=== PATIENT | female | born 1940 | race Caucasian/White ===

== ENCOUNTER 2018-04-04 06:09 | Observation (INO) | payer OTHER ==
[~2018-04-04] VITALS: Ht 157.5 cm; Wt 73.9 kg
[~2018-04-04 06:09] MED LIST: ALPR0.5T3 PO; BRIL90TA PO; ECASA81 PO; LISI10TA3 PO; PREV30CA36 PO; RANI150T PO; ZOCO40TA PO
[2018-04-04] MEDS ORDERED: CHLORHEXIDINE GLUCONATE 2 % 1 PACK (2 CLOTHS) TOPICAL PRN (06:30)
[2018-04-04] MEDS ORDERED: POVIDONE IODINE 5% (ANTISEPSIS KIT) 4 APPLICATIONS EACH NARE PRN (06:30)
[2018-04-04] MEDS ORDERED: LACTATED RINGER'S 1000 ML IV PRN (06:30)
[2018-04-04] MEDS ORDERED: METOPROLOL TARTRATE 25 MG TAB PO PRN (06:30)
[2018-04-04] MEDS ORDERED: SODIUM CHLORID 0.9% 500 ML IV PRN (06:30)
[2018-04-04] MEDS ORDERED: ACETAMINOPHEN 1000 MG/100 ML 100 ML IV ONE (07:10)
[2018-04-04] MEDS ORDERED: ARTIFICIAL TEARS OPTH OINT 3.5 APPLIC/3.5 GM TUBO ONE (07:10)
[2018-04-04 07:13] LABS: AUTOMATED NEUTROPHIL # 3.8 TH/MM3 (1.8-7.7); BASOPHIL # 0.1 TH/MM3 (0-0.2); BASOPHIL % 1.1 % (0.0-2.0); EOSINOPHIL # 0.5 TH/MM3 (0-0.4); EOSINOPHIL % 6.9 % (0.0-4.0); HEMATOCRIT 38.4 % (35.0-46.0); HEMOGLOBIN 12.4 GM/DL (11.6-15.3); LYMPH % 30.5 % (9.0-44.0); LYMPHOCYTE # 2.2 TH/MM3 (1.0-4.8); MEAN CELL VOLUME 80.7 FL (80.0-100.0); MEAN CORPUSCULAR HEMOGLOBIN 26.1 PG (27.0-34.0); MEAN CORPUSCULAR HGB CONC 32.4 % (32.0-36.0); MEAN PLATELET VOLUME 8.4 FL (7.0-11.0); MONO % 8.6 % (0.0-8.0); MONOCYTE # 0.6 TH/MM3 (0-0.9); NEUT % 52.9 % (16.0-70.0); PLATELET COUNT 373 TH/MM3 (150-450); RED BLOOD COUNT 4.76 MIL/MM3 (4.00-5.30); RED CELL DISTRIBUTION WIDTH 15.6 % (11.6-17.2); WHITE BLOOD COUNT 7.2 TH/MM3 (4.0-11.0)
[2018-04-04] MEDS: ceFAZolin 2 GM/DEX PREMIX 50 ML IV SCH ×2 (07:15→10:03)
[2018-04-04 07:20] LABS: PROTHROMBIN TIME - PATIENT 10.3 SEC (9.8-11.6)
[2018-04-04] MEDS ORDERED: BUPIVACAINE/EPINEPHRINE 0.5% PF 30 ML VIAL ONE (07:28)
[2018-04-04] MEDS ORDERED: GENTAMICIN SULFATE 80 MG/2 ML VIAL ONE (07:28)
[2018-04-04] MEDS ORDERED: THROMBIN (TOPICAL) 5,000 UNIT VIAL ONE (07:28)
[2018-04-04] MEDS ORDERED: methylPREDNISolone ACETATE 40 MG/ML VIAL ONE (07:28)
[2018-04-04] MEDS ORDERED: GELFOAM SIZE 100 ONE (07:28)
--- NOTE | 2018-04-04 07:29 | RADRPT ---
EXAM DATE: 04/04/2018 6:52 AM EDT AGE/SEX: 78 years / Female INDICATIONS: Pre op. Cough. CLINICAL DATA: This is the patient's initial encounter. Patient reports that signs and symptoms have been present for 1 day and indicates a pain score of 4/10. MEDICAL/SURGICAL HISTORY: None. None. COMPARISON: No prior exams available for comparison. FINDINGS: Portable AP view of the chest demonstrates a normal-sized cardiac silhouette. No effusion, consolidat ion, or pneumothorax is identified. The bones and soft tissues demonstrate no acute finding. CONCLUSION: No acute cardiopulmonary abnormality is identified. Electronically signed by: Godfrey Boone MD 04/04/2018 7:28 AM EDT
[2018-04-04 07:30] LABS: ALBUMIN 3.7 GM/DL (3.4-5.0); AST (GOT) 25 U/L (15-37); BICARBONATE 27.3 MEQ/L (21.0-32.0); BLOOD UREA NITROGEN 10 MG/DL (7-18); CALCIUM 8.9 MG/DL (8.5-10.1); CHLORIDE 108 MEQ/L (98-107); CREATININE 0.93 MG/DL (0.50-1.00); GLOMERULAR FILTRATION RATE 58 ML/MIN (>89); GLUCOSE,RANDOM 107 MG/DL (74-106); SODIUM (NA) 143 MEQ/L (136-145)
[2018-04-04 07:31] LABS: ALT (GPT) 35 U/L (10-53)
[2018-04-04 07:33] LABS: ALKALINE PHOSPHATASE 85 U/L (45-117); TOTAL BILIRUBIN ADULT 0.2 MG/DL (0.2-1.0); TOTAL PROTEIN 7.9 GM/DL (6.4-8.2)
[2018-04-04] MEDS ORDERED: MORPHINE SULFATE 4 MG/ML INJ IV PUSH PRN ×2 (11:15)
[2018-04-04] MEDS ORDERED: ACETAMINOPHEN/HYDROcodone 325 MG/10 MG TAB PO PRN ×2 (11:15)
[2018-04-04] MEDS ORDERED: ACETAMINOPHEN 325 MG TAB PO PRN (11:15)
[2018-04-04] MEDS ORDERED: ALPRAZolam 0.5 MG TAB PO PRN (11:15)
--- NOTE | 2018-04-04 11:19 | PD.OP ---
Operative Report Date of Surgery: Apr 04, 2018 Preoperative Diagnosis: Lumbar spinal stenosis Postoperative Diagnosis: Lumbar spinal stenosis Procedure: Left L4-5, L5-S1 decompressive hemilaminectomy, mesiofacetectomy, foraminotomy, microsurgical resection of the disk Anesthesia: general endotracheal Surgeon: Bebeto Michael Skip Locator(s): Poonam Shearer Operation and Findings: INDICATIONS FOR THE SURGICAL PROCEDURE Ms Vincent is a 78 year-old female who presented with intractable mechanical back pain and clinical evidence of left L5 and S1 lower extremity radiculopathy. She was found to have significant lumbar spinal stenosis with significant mass effect on the neural structures which correlated with the clinical symptoms. The patient has failed maximum nonsurgical management including multiple modalities of conservative treatment as well as pain management interventions by an interventional pain specialist. A surgical decompression was indicated as a last resort. The [id number] details of the procedure, indications, alternatives, risks and potential complications were fully discussed with the patient. The patient fully understood. All the questions were answered. No guarantees were given. The patient voiced requesting the procedure and provided informed consents. The patient was offered the alternative of delaying the procedure and continuing with nonsurgical management. DETAILS OF THE SURGICAL PROCEDURE After the induction of general anesthesia, endotracheal intubation was performed. A Leonardo catheter, bilateral DARRELL hose and sequential compression devices were placed and kept throughout the procedure. The patient was positioned prone on a Martin table over a Juan Daniel frame. All pressure points were carefully padded with eggcrate mattress. The eyes were tapped shut after ointment was applied by the anesthesiologist to prevent corneal abrasion. A Olinda hugger was placed over the exposed lower body to maintain control of the core body temperature. The lower lumbar region was prepped and draped in the usual sterile fashion. A spinal needle was placed for localization and an x- ray performed with a C-arm. A skin incision was made in the midline over the spinous processes L4-L5 and S1 with a #10 blade. Small subcutaneous bleeders were controlled with a bipolar and the dissection was carried out through the lumbar fascia exposing the spinous processes. A subperiostial dissection was performed with a Barclay elevator and a Bovie over the left L4-5 and L5-S1 spinous process lamina and facets. A microdiscectomy self-retaining retractor was placed on the incision and an x-ray was obtained with an instrument placed underneath the lamina. At this point in the procedure the operating microscope was draped in the usual sterile fashion and brought to the field. The rest of the surgical procedure was performed using microsurgical dissection technique with exception of the closure. Once the level was confirmed, a decompressive laminectomy was performed at L4-5 and L5-S1 on the left side using the TPS drill with an 4mm drill bit. A medial facetectomy was performed and the superior free border of the ligamentum flavum was dissected with a ligament dissector and removed with a thin footplate 2 mm Kerrison. The medial facetectomy was done and the L5 and S1 nerve roots were identified and followed towards its exit in the foramen. Epidural veins located laterally to the dural sac were coagulated with a bipolar and incised with microscissors. Gentle medial retraction of the dural sac allowed inspection of the disc spaces L4-5 and L5-S1 . The patient had severe facet arthropathy with hypertrhopy of the joint facets and ligamentum flavum resulting in mass effect over the dural sac and nerve roots. In addition , there was a broad-based disc protusion, contributing to the stenosis. The annulus fibrosus of the disc at L4-5 and L5-S1 was coagulated with the bipolar and incised with an 11 blade. The extruded disc was carefully dissected from the surrounding tissue and removed with pituitary forceps. Then, a microdiscectomy was carried out in the standard fashion using straight and up- biting pituitary forceps. A good decompression of the dural sac and nerve root was achieved. The exit of the nerve root was inspected for residual disc fragments and hemostasis was secured with the bipolar cautery. The incision was irrigated with a large amount of saline solution. A Valsalva maneuver failed to show any cerebrospinal fluid leak or bleeding. The decompression was assessed again and found to be satisfactory. The incision was then closed in layers. The fascia was closed with 0 Vicryl sutures in an interrupted fashion. The superficial fascia was closed with 0 Vicryl sutures. The fascia was infiltrated with 0.5% Marcaine with epinephrine 1:100,000 dilution. The subcutaneous tissue was irrigated then closed with 0 Vicryl and 3 -0 Vicryl. The skin was closed with 4-0 running subcuticular Vicryl. A sterile dressing was applied. At the end of the procedure, the sponge, needle and instrument counts were all correct. Estimated blood loss was less than 50-70 cc. No blood transfusion was given. No intraoperative complications occurred. The patient received prophylactic antibiotics. The patient was then extubated and transferred to the recovery room in stable condition. Bebeto Michael MD Apr 04, 2018 11:19
[2018-04-04] MEDS ORDERED: DO NOT ADM ANY ANTICOAGULANT DRUGS PRN (11:35)
[2018-04-04] MEDS ORDERED: MIDAZOLAM HCL 2 MG/2 ML VIAL ONE (11:45)
[2018-04-04] MEDS ORDERED: DEXAMETHASONE SOD PHOS 4 MG/ML VIAL IV ONE (12:00)
[2018-04-04] MEDS ORDERED: ONDANSETRON HCL 4 MG/2 ML VIAL IV ONE (12:00)
[2018-04-04] MEDS ORDERED: ePHEDrine/NS 25 MG/5 ML SYRINGE IV ONE (12:00)
[2018-04-04] MEDS ORDERED: NEOSTIGMINE 5 MG/5 ML SYRINGE IV PUSH ONE (12:00)
[2018-04-04] MEDS ORDERED: LIDOCAINE HCL 1% PF 5 ML SYRINGE OTHER ONE (12:00)
[2018-04-04] MEDS ORDERED: ROCURONIUM INJ 50 MG/5 ML SYRINGE IV PUSH ONE (12:00)
[2018-04-04] MEDS ORDERED: PROPOFOL 200 MG/20 ML AMP IV ONE (12:00)
[2018-04-04] MEDS ORDERED: GLYCOPYRROLATE 1 MG/5 ML SYRINGE IV PUSH ONE (12:00)
[2018-04-04] MEDS ORDERED: LACTATED RINGER'S 1000 ML INJ 2,000 ML IV ONE (12:00)
[2018-04-04] MEDS ORDERED: LIDOCAINE HCL 1% 20 ML VIAL ONE (12:28)
--- NOTE | 2018-04-04 12:29 | EKG ---
Date Performed: 04/04/2018 Time Performed: 07:29:29 PTAGE: 78 years EKG: SINUS BRADYCARDIA BORDERLINE ECG NO PREVIOUS TRACING DOCTOR: Mello Lemos Interpretating Date/Time 04/04/2018 12:26:07
[2018-04-04] MEDS ORDERED: *morphine SULFATE 4 MG/ML PERIprocedure ONLY ONE (12:32)
[2018-04-04] MEDS: NS + KCL 20 MEQ INJ 1,000 ML IV SCH ×2 (12:48→21:24)
[2018-04-04 13:36] VITALS: BP 138/62; PULSE 77; RESP 17; TEMP 97.1; O2SAT 93
[2018-04-04 16:00] VITALS: BP 123/60; PULSE 79; RESP 18; TEMP 97.3; O2SAT 94
--- NOTE | 2018-04-04 16:33 | RADRPT ---
EXAM DATE: 04/04/2018 4:20 PM EDT AGE/SEX: 78 years / Female INDICATIONS: Level localization L4,L5 and L5,S1 for laminectomy. CLINICAL DATA: This is the patient's initial encounter. Patient reports that signs and symptoms have been present for 1 day and indicates a pain score of Nonresponsive. MEDICAL/SURGICAL HISTORY: None. None. COMPARISON: No prior exams available for comparison. FINDINGS: 2 lateral views from the OR have been submitted. Surgical instruments are directed towards the L5 pos terior elements. CONCLUSION: Localization as described above. Electronically signed by: Godfrey Guzman MD 04/04/2018 4:32 PM EDT
[2018-04-04] MEDS: ceFAZolin 2 GM PREMIX 50 ML IV SCH (18:10)
[2018-04-04 20:00] VITALS: BP 139/66; PULSE 64; RESP 16; TEMP 97.3; O2SAT 98
[2018-04-04] MEDS: DOCUSATE SODIUM 100 MG CAP PO SCH (21:13)
[2018-04-04] MEDS: TICAGRELOR 90 MG TAB PO SCH (21:13)
[2018-04-04] MEDS: FAMOTIDINE 20 MG TAB PO SCH (21:13)
[2018-04-05] VITALS: BP 132/60; PULSE 59; RESP 16; TEMP 97.5; O2SAT 96
[2018-04-05] MEDS: ceFAZolin 2 GM PREMIX 50 ML IV SCH ×2 (03:05→09:36)
[2018-04-05 04:00] VITALS: BP 118/58; PULSE 113; RESP 16; TEMP 97.8; O2SAT 96
[2018-04-05 08:20] VITALS: BP 165/75; PULSE 77; RESP 20; TEMP 97.9; O2SAT 98
[2018-04-05] MEDS ORDERED: PANTOPRAZOLE SOD 40 MG DELAYED RELEASE TAB PO SCH (09:00)
[2018-04-05] MEDS ORDERED: PRAVASTATIN SOD 80 MG TAB PO SCH (09:00)
[2018-04-05] MEDS ORDERED: NON-FORMULARY DRUG (Lansoprazole (Prevacid) 30 MG) PO SCH (09:00)
[2018-04-05] MEDS ORDERED: LISINOPRIL 10 MG TAB PO SCH (09:00)
[2018-04-05] MEDS ORDERED: CHLORHEXIDINE GLUCONATE 2 % 1 PACK (2 CLOTHS) TOPICAL SCH (09:00)
[2018-04-05] MEDS: FAMOTIDINE 20 MG TAB PO SCH (09:35)
[2018-04-05] MEDS: DOCUSATE SODIUM 100 MG CAP PO SCH (09:35)
[2018-04-05] MEDS: TICAGRELOR 90 MG TAB PO SCH (09:36)
[2018-04-05] MEDS: NS + KCL 20 MEQ INJ 1,000 ML IV SCH (09:36)
[2018-04-05] MEDS ORDERED: HYDR-3583 PO (10:20)
--- NOTE | 2018-04-05 11:00 | HHI.DCPOC ---
Discharge Care Plan Diagnosis: (1) S/P lumbar laminectomy Goals to Promote Your Health * To prevent worsening of your condition and complications * To maintain your health at the optimal level Directions to Meet Your Goals Take your medications as prescribed Follow your dietary instruction Follow activity as directed Keep your appointments as scheduled Take your immunizations and boosters as scheduled If your symptoms worsen call your PCP, if no PCP go to Urgent Care Center or Emergency Room Smoking is Dangerous to Your Health. Avoid second hand smoke Call the 24-hour hour crisis hotline for domestic abuse at Raisa Coon Apr 05, 2018 11:00
--- NOTE | 2018-04-05 11:01 | HHI.DS ---
Discharge Summary Admission Date Apr 04, 2018 at 11:07 Discharge Date: Apr 05, 2018 Admitting Diagnosis s/p lumbar laminectomy (1) S/P lumbar laminectomy ICD Code: Z98.890 - Other specified postprocedural states Brief History Ms Vincent is a 78 year-old female who presented with intractable mechanical back pain and clinical evidence of left L5 and S1 lower extremity radiculopathy. She was found to have significant lumbar spinal stenosis with significant mass effect on the neural structures which correlated with the clinical symptoms. The patient has failed maximum nonsurgical management including multiple modalities of conservative treatment as well as pain management interventions by an interventional pain specialist. A surgical decompression was indicated as a last resort. CBC/BMP: 04/04/18 0655 04/04/18 0655 Significant Findings Laboratory Tests Test 04/04/18 06:55 Mean Corpuscular Hemoglobin 26.1 PG (27.0-34.0) Monocytes (%) (Auto) 8.6 % (0.0-8.0) Eosinophils (%) (Auto) 6.9 % (0.0-4.0) Eosinophils # (Auto) 0.5 TH/MM3 (0-0.4) Random Glucose 107 MG/DL (74-106) Chloride Level 108 MEQ/L (98-107) Estimat Glomerular Filtration Rate 58 ML/MIN (>89) Imaging Last Impressions Lumbar Spine X-Ray 04/04/18 0000 Signed Impressions: CONCLUSION: Localization as described above. Chest X-Ray 04/04/18 0000 Signed Impressions: CONCLUSION: No acute cardiopulmonary abnormality is identified. Hospital Course Ms. Vincent underwent left L4-5, L5-S1 decompressive hemilaminectomy, mesiofacetectomy, foraminotomy, microsurgical resection of the disk on Apr 04, 2018 for Lumbar spinal stenosis. She was discharged home in stable conditions Pt Condition on Discharge: Stable Discharge Disposition: Discharge Home Discharge Instructions DIET: Follow Instructions for: Heart Healthy Diet ACTIVITIES You can perform: Weight Bearing As Manny ADDITIONAL Activity Instructio: Avoid strenuous activities, heavy lifting over 5 lbs, overhead activities, repetitive bending, twisting, pushing, pulling or any activities which might result in stress over the spine. Avoid situation that will put at risk for falls. Use assistive device as needed for walking. Wear provided back brace when out of bed. New Medications: Hydrocodone/Acetaminophen (Hydrocodone-Acetamin 10-325 mg) 10 Mg-325 Mg Tablet 1 TAB PO Q8HR PRN for PAIN SCALE 1 TO 10, #60 TAB 0 Refills Continued Medications: Alprazolam (Alprazolam) 0.5 Mg Tab 0.5 MG PO TID PRN for ANXIETY, TAB [address] (Aspirin DR) 81 Mg Tabdr 81 MG PO DAILY, TAB 0 Refills Lansoprazole (Prevacid) 30 Mg Capdr 30 MG PO DAILY, CAP 0 Refills Lisinopril (Lisinopril) 10 Mg Tab 10 MG PO DAILY, #30 TAB 0 Refills Ranitidine (Ranitidine) 150 Mg Tab 150 MG PO HS for Heartburn Management, #30 TAB 0 Refills Simvastatin (Zocor) 40 Mg Tab 40 MG PO DAILY for Cholesterol Management, #30 TAB 0 Refills Ticagrelor (Brilinta) 90 Mg Tab 90 MG PO BID for Blood Clot Prevention, #60 TAB 0 Refills Raisa Coon Apr 05, 2018 11:00
== END 2018-04-05 12:58 | disposition home or self-care (01) ==
LOC: HSDC 06:09 → HSDI 11:07 → N06A 13:09
PROVIDERS: ADMIT Neurological Surgery; ATTEND Neurological Surgery
DX: M48.061 Spinal stenosis, lumbar region without neurogenic claudication (principal); M51.16 Intervertebral disc disorders with radiculopathy, lumbar region; M47.26 Other spondylosis with radiculopathy, lumbar region; I10 Essential (primary) hypertension; E78.5 Hyperlipidemia, unspecified; K21.9 Gastro-esophageal reflux disease without esophagitis; R20.0 Anesthesia of skin; R20.2 Paresthesia of skin; R53.1 Weakness; F41.9 Anxiety disorder, unspecified; Z87.440 Personal history of urinary (tract) infections; Z01.818 Encounter for other preprocedural examination
CPT/HCPCS: 00630; 63030; 63035; 71045; 72020; 76000; 80053; 85025; 85610; 93005; 94150; 96361; 96365; 97162; G0378; G8987; G8988; J0131; J0690; J1030; J1100; J1580; J2250; J2270; J2405; J2710; J3010; J3480; J7120; L0627